=== PATIENT | male | born 1985 | race American Indian/Alaskan Native ===

== ENCOUNTER 2020-01-30 04:57 | Emergency (ER) | payer SELFPAY ==
[2020-01-30 06:00] LABS: Basophils # (Auto) 0.1 K/mm3 (0.0-0.1); Basophils % (Auto) 0.6 % (0.0-1.8); Eosinophils # (Auto) 0.1 K/mm3 (0.0-0.4); Eosinophils % (Auto) 0.5 % (0.0-4.3); Hemoglobin 13.3 gm/dl (11.8-15.2); Lymphocytes # (Auto) 1.7 K/mm3 (1.2-5.4); Lymphocytes % (Auto) 15.1 % (13.4-35.0); Mean Corpuscular HGB Conc 33 % (32-34); Mean Corpuscular Volume 91 fl (84-94); Monocytes # (Auto) 0.6 K/mm3 (0.0-0.8); Monocytes % (Auto) 5.5 % (0.0-7.3); Platelet Count 327 K/mm3 (140-440); Red Blood Count 4.53 M/mm3 (3.65-5.03); Red Cell Distribution Width 13.8 % (13.2-15.2)
[2020-01-30 06:14] LABS: Calcium 9.6 mg/dL (8.4-10.2)
[2020-01-30 06:47] LABS: Bilirubin,Urine NEG (Negative); Blood,Urine NEG (Negative); Color,Urine Straw (Yellow); Mucus,Urine FEW /HPF; Protein,Urine <15 mg/dL mg/dL (Negative); Urobilinogen,Urine < 2.0 mg/dL (<2.0); WBC,Urine < 1.0 /HPF (0.0-6.0)
[2020-01-30 06:55] LABS: Amphetamine Screen,Urine PRESUMPTIVE NEGATIVE; Benzodiazepines Screen,Urine PRESUMPTIVE NEGATIVE; Cocaine Screen,Urine PRESUMPTIVE NEGATIVE; Methadone Screen,Urine PRESUMPTIVE NEGATIVE; Opiate Screen,Urine PRESUMPTIVE NEGATIVE
[2020-01-30 07:09] LABS: Cannabinoid Screen,Urine PRESUMPTIVE POSITIVE
[2020-01-30 08:53] VITALS: BP 128/76
== END 2020-01-30 09:30 | disposition home or self-care (01) ==
LOC: ED 04:57
DX: F12.129 Cannabis abuse with intoxication, unspecified (principal); I10 Essential (primary) hypertension; E11.9 Type 2 diabetes mellitus without complications; F31.9 Bipolar disorder, unspecified; F20.9 Schizophrenia, unspecified; F17.200 Nicotine dependence, unspecified, uncomplicated
CPT/HCPCS: 36415; 80048; 80307; 80320; 81001; 82962; 85025; 99284; G0480

== ENCOUNTER 2020-04-12 00:55 | Emergency (ER) | payer SELFPAY ==
[2020-04-12 01:18] VITALS: BP 155/100
== END 2020-04-12 07:50 ==
LOC: ED 00:55
DX: G40.909 Epilepsy, unspecified, not intractable, without status epilepticus (principal); Z53.21 Procedure and treatment not carried out due to patient leaving prior to being seen by health care provider

== ENCOUNTER 2020-04-13 01:55 | Emergency (ER) | payer SELFPAY ==
[2020-04-13] MEDS ORDERED: ZIPRASIDONE MESYLATE 20 MG VIAL IM ONE ×2 (02:09→10:34)
[2020-04-13] MEDS ORDERED: LORazepam 2 MG/ML VIAL IM ONE ×2 (02:09→22:17)
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
[2020-04-13 02:32] LABS: Hematocrit 40.6 % (35.5-45.6); Hemoglobin 14.4 gm/dl (11.8-15.2); Mean Corpuscular HGB Conc 35 % (32-34); Mean Corpuscular Volume 91 fl (84-94); Platelet Count 278 K/mm3 (140-440); Red Blood Count 4.48 M/mm3 (3.65-5.03); Red Cell Distribution Width 13.6 % (13.2-15.2)
[2020-04-13 02:40] LABS: BUN/Creatinine Ratio 15; Blood Urea Nitrogen 22 mg/dL (9-20); Calcium 9.8 mg/dL (8.4-10.2); Hemolysis Index 13
[2020-04-13 03:41] LABS: Bilirubin,Urine NEG (Negative); Blood,Urine NEG (Negative); Color,Urine Yellow (Yellow); Protein,Urine <15 mg/dL mg/dL (Negative); Urobilinogen,Urine < 2.0 mg/dL (<2.0)
[2020-04-13 03:59] LABS: Amphetamine Screen,Urine Negative; Benzodiazepines Screen,Urine Negative; Cocaine Screen,Urine Negative; Methadone Screen,Urine Negative; Opiate Screen,Urine Negative
[2020-04-13 04:41] LABS: Basophils % (Manual) 0 % (0.0-1.8); Total Cells Counted 100
[2020-04-13 04:42] LABS: Platelet Estimate Consistent w Auto
[2020-04-13 05:04] LABS: Cannabinoid Screen,Urine Positive
[2020-04-13] MEDS ORDERED: WATER FOR INJ Sterile (PF) 10 ML ONE (10:40)
[2020-04-13 15:31] LABS: BUN/Creatinine Ratio 15; Blood Urea Nitrogen 18 mg/dL (9-20); Calcium 9.3 mg/dL (8.4-10.2); Hemolysis Index 21
[2020-04-13] MEDS ORDERED: diphenhydrAMINE 50 MG/ML VIAL IM ONE (22:18)
[2020-04-13] MEDS ORDERED: diphenhydrAMINE 50 MG/ML VIAL ONE (22:20)
[2020-04-13] MEDS ORDERED: LORazepam 2 MG/ML VIAL ONE (22:20)
[2020-04-14] MEDS ORDERED: ZIPRASIDONE MESYLATE 20 MG VIAL IM ONE ×2 (04:27→04:29)
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
[2020-04-14] MEDS: HALOPERIDOL 5 MG TAB PO SCH ×2 (13:32→22:47)
[2020-04-14] MEDS: DIVALPROEX DR 500 MG TAB PO SCH (22:47)
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
[2020-04-15] MEDS: HALOPERIDOL 5 MG TAB PO SCH ×2 (11:33→22:45)
[2020-04-15] MEDS: DIVALPROEX DR 500 MG TAB PO SCH (22:45)
--- NOTE | 2020-04-16 08:07 | Progress Note ---
Subjective - Reason for Consult Consult date: 04/16/20 Reason for consult: MHE Requesting physician: KAYLAN ROSADO III - Chief Complaint Chief complaint: Per ED Nurse: Received pt in the room. Pt is AAOx3. Checked pt's vital signs and is stable, respiration even and non labored not in respiratory distress. Provided snack abg to the pt. Provided and maintained safe environment . Will continue to monitor the pt. Initialized on 04/15/20 20:25 - END OF NOTE Psych ED Patient seen this AM, reports feeling fine, compliant with medications and wishes to be discharged. Says [facility] and retirement that he would liek to go. Denies SI, HI or AVH REVIEW OF SYSTEMS Constitutional: Negative for weight loss ENT: Negative for stridor Respiratory: Negative for cough or hemoptysis All other systems reviewed and are negative MENTAL STATUS EXAMINATION General Appearance and Behavior: Age appropriate, good hygiene, wearing appropriate clothes, lying in bed, good eye contact, cooperative polite with questioning. Cooperation: Participating/engaged Psychomotor Behavior: unremarkable and within normal limits Mood: Good Affect and affective range: dysthymic Thought Process: Logical Thought Content: Within reality Speech: Normal volume, Regular rate and rhythm, Intellectual Functioning: Average Suicidal Ideation: Denies SI Homicidal Ideation: denies Impulse Control: Impaired Insight and Judgment: Normal insight and judgment Memory: Normal Attention: Normal Orientation: Alert, oriented, anxious RECOMMENDATIONS Assessment and Plan - Psychiatric problem (1) Schizophrenia, acute Current Visit: Yes Status: Acute (2) Bipolar 1 disorder with moderate martín Current Visit: Yes Status: Acute MEDICATIONS: Patient seen antagonizing and talking to other patients triggering situational incidents requiring management. Will have patient continue medications in here for one more day before allowing discharge to avoid pt being readmitted to hospital if discharge with his current thought disorder. Risks, benefits and alternatives of medications discussed with the patient, questions answered and consent obtained from patient. PSYCHOTHERAPY: Supportive psychotherapy provided MEDICAL: Per primary team DELIRIUM PRECAUTIONS: Please re-orient patient frequently, keep lights on during the day, and minimize benzodiazepines and opiates as these medications could worsen patient's confusion. CONTINUING EDUCATION DEAN: DISPOSITION: DO not recommends acute inpatient psychiatric hospitalization at this time LEGAL STATUS: 1013 rescinded FOLLOW-UP: Will sign off Thank you for the consult. Please contact with any questions and/or concerns. Mental Status Exam - Vital signs Last Vital Signs Temp 98.9 F 04/16/20 02:25 Pulse 89 04/16/20 02:25 Resp 16 04/16/20 02:25 BP 156/90 04/16/20 02:25 Pulse Ox 100 04/16/20 02:25 Assessment and Plan - Patient Problems (1) Schizophrenia, acute Status: Acute (2) Bipolar 1 disorder with moderate martín Status: Acute
[2020-04-16 08:47] VITALS: BP 150/101
[2020-04-16] MEDS: HALOPERIDOL 5 MG TAB PO SCH (10:59)
== END 2020-04-16 12:41 | disposition home or self-care (01) ==
LOC: ED 01:55 → EEVIPCON 01:55 → ED 04-16 12:41
DX: R45.850 Homicidal ideations (principal); I10 Essential (primary) hypertension; F20.89 Other schizophrenia; E11.9 Type 2 diabetes mellitus without complications; F31.9 Bipolar disorder, unspecified; F17.200 Nicotine dependence, unspecified, uncomplicated; F12.10 Cannabis abuse, uncomplicated; Z79.899 Other long term (current) drug therapy
CPT/HCPCS: 36415; 80048; 80307; 81001; 85007; 85025; 96372; 99284; J1200; J2060; J3486; 80320; G0480